=== PATIENT | female | born 1980 | race Caucasian/White ===

== ENCOUNTER 2022-03-09 08:42 | Outpatient (CLI) | payer OTHER, SELFPAY ==
--- NOTE | 2022-03-09 08:45 | CRLHL7_ITS ---
For Patients: As a result of the Century Cures Act, medical imaging exams and procedure reports are released immediately into your electronic medical record. You may view this report before your referring provider. If you have questions, please contact your health care provider. BILATERAL SCREENING MAMMOGRAM WITH COMPUTER-AIDED DETECTION AND TOMOSYNTHESIS TECHNIQUE: CC and MLO views were obtained. These mammographic images have been obtained using full-field digital technique. These mammographic images were interpreted with the benefit of computer-aided detection. Breast Tomosynthesis was used in this interpretation. COMPARISON FILM: 08/18/20. FINDINGS: The breasts are heterogeneously dense, which may obscure small masses IMPRESSION: There is no radiographic evidence for malignancy. ASSESSMENT: BI-RADS Category 2: Benign RECOMMENDATION: Routine screening mammogram in 1 year. A lay language report of this examination will be provided to the patient. Yuni Monroe M.D. Diagnostic/Breast Radiologist [email or web address] NALLELY/Dictated by: Yuni Monroe MD @ 03/09/2022 9:48:00 AM (Electronically Signed)
== END 2022-03-09 08:43 | disposition home or self-care (01) ==
LOC: MAMMO 08:43
PROVIDERS: PCP Family Medicine; Visit Provider Family Medicine
DX: Z12.31 Encounter for screening mammogram for malignant neoplasm of breast (principal); R92.2 Inconclusive mammogram
CPT/HCPCS: 77063; 77067

== ENCOUNTER 2023-04-05 11:52 | Outpatient (CLI) | payer OTHER, SELFPAY ==
--- NOTE | 2023-04-05 12:00 | MR_ITS ---
[facility] [address] [facility] [address] Phone:?[phone] Fax:?[phone] Referring Physician Information: Funmi Patel D.O. [address] [facility] [address] Phone:?[phone] Fax:?[phone] Patient:ManSissy Faust D.O.B:?1980 Sex:?Female Phone:?[phone] [facility] MRN:?[id number] Exam Date:?04/05/2023 EXAM: MRI of the RIGHT HIP, without contrast CLINICAL: Female, 42 years old, with lower back and right hip pain.. INDICATION: Evaluate for hip derangement etiology. PRIOR SURGERY: History of prior surgery including labral repair and ALIREZA hip orthodoxy surgery. PLAIN FILMS: None available. COMPARISONS: No prior MRIs available. MRI of the lumbar spine was also performed and reported separately on today's date. TECHNICAL: Using a 1.5T MR scanner: 3.0 mm?coronals: PD, T2 3.0 mm?sagittals: PD, T2 4.0 mm oblique?axials: PD 4.0 mm?axials: PDFS 5.0 mm?coronals: T1, STIR of pelvis including hips SEDATION: None. CONTRAST: None. IMPRESSION: 1. Residua of labral repair/stabilization surgery with moderate to marked attenuation of the anterosuperior labrum although without convincing more well- defined linear tear. 2. Femoral head-neck osteochondroplasty for cam lesion decompression appears adequate without residual femoral cam morphology. 3. Normal volume hip without acetabular retroversion. 4. No right hip chondromalacia/osteoarthritis. 5. No bone stress injuries. 6. No myotendinous abnormalities. FINDINGS: Hip joint: Effusion: Physiologic hip effusion. Ganglion/paralabral cyst: None. Articular cartilage: Uniform, without demonstrable full-thickness chondromalacia or premature osteoarthritis. Loose bodies: None. Labrum: Residua of labral repair/stabilization surgery. Moderate to marked attenuation/blunting of the anterosuperior into superior labrum without defined linear recurrent labral tear (oblique axial series 6, images 18-13; sagittal PD series 8, images 25-30; coronal PD series 4, images 18-22). The posterosuperior labrum appears intact. Proximal femur: Residua of broad-based femoral head-neck osteochondroplasty for cam decompression without evidence for residual femoral cam morphology. No femoral occult fracture, bone stress injury, marrow edema or osteonecrosis. Acetabulum: No subchondral cysts, periacetabular ossicles or marrow edema. Version: No convincing acetabular retroversion. Coverage: Right lateral center edge (CE) angle measures normal at approximately 30? (normal 25?-39?), midline coronal series 4, image 16. Ligamentum teres: Intact and unremarkable. Pelvis osseous structures: Sacrum: No stress/insufficiency fractures or marrow edema/pathology. Sacroiliac joints: No demonstrable sacroiliitis. Pubic rami: No stress/insufficiency fractures or marrow edema/pathology. Symphysis pubis: No ongoing osteitis pubis. AIIS: Superoinferior extent: At the level of the acetabular roof. Anterior extent: 13 mm anterior to the anterior mid-acetabular rim. Myotendinous structures: Gluteus abductors: No convincing insertional tendinopathy or tear of gluteus minimus or medius. Adductors: No demonstrable tendinopathy or strain/tear. Rectus abdominis: No demonstrable tear/strain. Pre-pubic aponeurotic complex: Intact, without evidence of common rectus abdominis-adductor longus aponeurosis or pubic plate lesion. Hamstrings: Intact semimembranosus, semitendinosus and biceps femoris tendons, without tendinopathy or tear. Flexors: Intact iliopsoas and rectus femoris, without strain/tear. External rotators: Intact, without demonstrable ischiofemoral impingement. Gluteal aponeurotic fascia and IT band: Unremarkable. Bursae: No demonstrable trochanteric, iliopsoas, or iliopectineal bursitis. Intrapelvic contents: Free fluid: No free fluid seen within the pelvis. Pelvic viscera: No discrete intrapelvic mass is identified. Lymph nodes: No pathologically enlarged lymphadenopathy. Neurovascular structures: No discrete cyst, mass or other compression upon the portions visualized of sciatic or femoral nerves. HMF Electronically signed on 04/06/2023 4:52:00 PM by Juan Luis Castillo M.D.
--- NOTE | 2023-04-05 12:00 | MR_ITS ---
[facility] [address] [facility] [address] Phone:?[phone] Fax:?[phone] Referring Physician Information: Funmi Patel D.O. [address] [facility] [address] Phone:?[phone] Fax:?[phone] Patient:Severiano Govind Jimenes.B:?1980 Sex:?Female Phone:?[phone] [facility] MRN:?[id number] Exam Date:?04/05/2023 EXAM: MRI OF THE LUMBAR SPINE WITHOUT CONTRAST CLINICAL INFORMATION: Right low back pain. TECHNICAL INFORMATION: Sagittal fast spin-echo T2-weighted, T1-weighted, STIR as well as axial fast spin-echo T1 and T2-weighted images of the lumbar spine were obtained on a 1.5 Tiffanie MRI scanner.?SEDATION:?None.?CONTRAST:?None. INTERPRETATION: Comparison MRI lumbar spine examination dated 11/01/2017. Generalized levocurvature with 2 to 3 mm retrolisthesis of L2 on L3 and mildly straightened lumbar lordosis. No acute fracture or spondylolysis, although edematous degenerative endplate changes are demonstrated at L2-3. Conus is normal and terminates at L1. Imaged upper sacrum and paraspinal soft tissue structures are unremarkable. Disc desiccation and annular bulging are demonstrated at L4-5 and L2-3 with isolated annular bulging at L3-4. Disc space narrowing is severe at L4-5 and mild at L2-3. L5-S1: Normal posterior disc margins and mild left facet arthrosis. Patent foramina. L4-5: Unchanged left laminotomy and 2 to 3 mm left posterolateral disc protrusion without central stenosis or traversing neural compression. Mild bilateral facet hypertrophy with mild to moderate bilateral chronic foraminal narrowing. L3-4: Unchanged annular bulging with mild left subarticular recess narrowing, but no traversing neural compression or central stenosis. Mild right facet arthrosis and left facet hypertrophy with chronic, mild bilateral foraminal narrowing. L2-3: Unchanged left posterolateral annular fissure with unchanged annular bulging more prominent in this distribution and resultant mild left subarticular recess narrowing, but no traversing neural compression or central stenosis. Mild left facet hypertrophy with mild bilateral chronic foraminal narrowing. L1-2: Normal posterior disc margins and mild left facet hypertrophy. Patent foramina. T12-L1: Normal posterior disc margins and facets. Patent foramina. T11-12: Normal posterior disc margins and mild right facet hypertrophy. Patent foramina. CONCLUSION: Multilevel degenerative lumbar spondylosis, unchanged left L4-5 laminotomy and the following notable findings: 1. Unchanged, 2 to 3 mm left posterolateral L4-5 disc protrusion without central stenosis or traversing neural compression. 2. No acute fracture or spondylolysis, although edematous degenerative endplate changes are demonstrated at L2-3. 3. Mild left L5-S1 and right L3-4 facet arthrosis. 4. No evidence of arachnoidal adhesive disease. SC Electronically signed on 04/07/2023 2:36:00 PM by Dash Avila M.D.
== END 2023-04-05 11:53 | disposition home or self-care (01) ==
LOC: MRI 11:53
PROVIDERS: PCP Family Medicine; Visit Provider Family Medicine
DX: M54.50 Low back pain, unspecified (principal); M47.896 Other spondylosis, lumbar region; M25.551 Pain in right hip; G89.29 Other chronic pain
CPT/HCPCS: 72148; 73721

== ENCOUNTER 2023-04-10 10:48 | Outpatient (CLI) | payer OTHER, SELFPAY ==
--- NOTE | 2023-04-10 11:00 | CRLHL7_ITS ---
For Patients: As a result of the Century Cures Act, medical imaging exams and procedure reports are released immediately into your electronic medical record. You may view this report before your referring provider. If you have questions, please contact your health care provider. CLINICAL HISTORY: RIGHT PELVIC PAIN TECHNIQUE: 2D feliciano scale ultrasound. In addition color Doppler and spectral Doppler analysis was performed of the pelvis using a transabdominal and transvaginal approach. FINDINGS: The uterus measures 9.2 x 6.0 x 7.5 cm. Midline uterine fibroid in the fundus measuring 2.7 x 2.8 x 3.0 cm. A pedunculated left fundal fibroid is also present measuring 2.2 x 1.8 x 3.6 cm. A left lateral fundal fibroid noted measuring 2.0 x 1.8 x 2.2 cm. The endometrial lining demonstrates post ablation changes measures 8 mm in thickness. The right ovary measures 4.2 x 1.6 x 2.3 cm in size and the left ovary measures 3.5 x 1.7 x 2.0 cm. The ovaries demonstrate normal arterial and venous blood flow on color Doppler and spectral Doppler analysis. There are no suspicious fluid collections within the cul-de-sac. IMPRESSION: Uterine fibroids measuring up to 3.6 cm. Post ablation changes to the endometrium. Normal ovaries. No torsion, adnexal mass or excess pelvic free fluid. Dictated by Garcia Fajardo MD @ 04/11/2023 8:40:01 AM (Electronically Signed)
== END 2023-04-10 10:49 | disposition home or self-care (01) ==
PROVIDERS: PCP Family Medicine; Visit Provider Family Medicine
DX: M25.551 Pain in right hip (principal); D25.9 Leiomyoma of uterus, unspecified; R10.2 Pelvic and perineal pain
CPT/HCPCS: 76830; 76856; 93976

== ENCOUNTER 2023-09-18 13:08 | Outpatient (CLI) | payer OTHER, SELFPAY ==
--- NOTE | 2023-09-18 13:45 | MR_ITS ---
Patient: CHING Knowles RUNNING Facility:?[facility] Patient ID:?[id number] Site Patient ID:?[id number]. Site :?1980 Study:?MRI-Extremity Right KNEE W/O-09/18/2023 2:24:43 PM Ordering Physician:TANIA CONLEY Final Report: CLINICAL INDICATION: Right knee pain. COMPARISON STUDIES: None available at time of interpretation. TECHNICAL: Noncontrast MRI of the right knee. 1.5 rico MRI scanner. Axial, sagittal and coronal T1, PD, PD FS and T2 FS images. FINDINGS: MEDIAL COMPARTMENT: Medial Meniscus: The medial meniscal body is moderately medially extruded. At the body-posterior horn junction of the meniscus, there is vertical meniscal signal abnormality noted on coronal PD image number 22 of series 6 and also apparent on sagittal T2 fat-sat image number 25 series 8. This reflects sequelae of meniscal tearing. Correlation with surgical history as pertains to the meniscus is suggested. Specifically has the patient undergone a primary meniscal repair in that region as single conversion changes can persist following central procedure. In the absence of a primary meniscal repair, the finding would be suspicious for a small area of meniscal tearing. Slightly truncated free edge of the medial aspect of the posterior horn of the meniscus. Articular Cartilage: Marginal osteophyte formation. Moderate to high-grade grade medial compartment cartilage wear with areas of grade 2 and 3 chondromalacia present. LATERAL COMPARTMENT: Lateral Meniscus: Intact. Articular Cartilage: Maintained. PATELLOFEMORAL COMPARTMENT: Articular Cartilage: Subchondral bone marrow edema involving the patellar apex indicates up to grade 4 chondromalacia. Trochlear articular cartilage is maintained. LIGAMENTS: Anterior Cruciate Ligament: ACL reconstruction. Appropriate tunnel position. Intact graft fibers. No cyclops lesion. Posterior Cruciate Ligament: Intact. MEDIAL COLLATERAL LIGAMENT AND POSTEROMEDIAL CORNER COMPLEX: Medial Collateral Ligament: Intact. Medial Head of the Gastrocnemius and Semimembranosus Tendons: Normal. LATERAL COLLATERAL LIGAMENT COMPLEX AND POSTEROLATERAL CORNER COMPLEX: Fibular Collateral Ligament: Normal. Distal Biceps Femoris Tendon Complex: Normal. Iliotibial Band: Normal. Popliteus Tendon: Normal. Posterolateral Corner Capsule: Normal. EXTENSOR MECHANISM: Distal Quadriceps Tendon: Normal. Patellar Tendon: Normal. Medial Patellar Retinaculum and Medial Patellofemoral Ligament: Normal. Lateral Patellar Retinaculum: Normal. Normal patellar alignment. No patella parveen. Normal trochlear depth. Normal lateral trochlear inclination. JOINT SPACE AND CAPSULE: Small joint effusion with mild synovitis. BONES AND SOFT TISSUES: No acute fracture or avascular necrosis.Small popliteal cyst. Small amount of fluid within the semimembranosus/MCL bursa compatible with bursitis. IMPRESSION: 1. Intact ACL graft. Appropriate tunnel position. No cyclops lesion. 2. Medial compartment and patellar chondromalacia. Mild osteophyte formation. 3. Sequelae of prior tearing of the posterior horn-body junction and posterior horn of the medial meniscus. Small focus of vertical meniscal signal abnormality involving the posterior horn-body junction of the meniscus suggestive of vertical tear. Correlation with surgical history as pertains to the meniscus is suggested (i.e. Has there been a primary meniscal repair at that position as signal abnormality can persist status post such a procedure) 4. Small joint effusion with mild synovitis. 5. Small popliteal cyst with adjacent semimembranosus/MCL bursitis. Dictated by Luis Jin MD @ 09/19/2023 9:20:26 AM Signed by:?Luis Jin MD @09/19/2023 9:20:26 AM (Electronic Signature)
== END 2023-09-18 13:09 | disposition home or self-care (01) ==
LOC: MRI 13:09
PROVIDERS: PCP Family Medicine; Visit Provider Physician Assistant
DX: M25.561 Pain in right knee (principal); M22.41 Chondromalacia patellae, right knee; S83.241A Other tear of medial meniscus, current injury, right knee, initial encounter; M25.461 Effusion, right knee; M71.21 Synovial cyst of popliteal space [Baker], right knee; M70.51 Other bursitis of knee, right knee
CPT/HCPCS: 73721

== ENCOUNTER 2023-10-02 10:54 | Outpatient (CLI) | payer OTHER, SELFPAY ==
--- NOTE | 2023-10-02 11:15 | FL_ITS ---
Patient: CHING Knowles RUNNING Facility:?[facility] Patient ID:?[id number] Site Patient ID:?[id number]. Site :?1980 Study:?XRay-Hip Right Injection under fluoro DrJohn to JOSEFINA-10/02/2023 12:12:51 PM Ordering Physician:?TANIA FERGUSON Final Report: Indication: Right hip pain. Comparison: None. Procedure : Informed consent was obtained. The site was marked. Time-out was performed. The skin of the right hip was cleansed with ChloraPrep. A sterile drape was placed. 8 cc of 1 percent lidocaine was administered for superficial anesthesia. Subsequently a 22 gauge spinal needle was introduced into the right hip joint under intermittent fluoroscopic guidance. Injection of 2 cc nonionic Omnipaque 240 contrast confirmed intra-articular location. Subsequently 7 cc 1 percent lidocaine and 2 cc 40 milligram per cc Depo-Medrol injected. The needle was removed and hemostasis achieved with direct pressure. A dressing was placed. The patient tolerated the procedure well without immediate complication. Total fluoroscopy time 27 seconds. Impression: Successful fluoroscopically guided right hip injection. Dictated by Garcia Fajardo MD @ 10/02/2023 12:43:49 PM Signed by:?Garcia Fajardo MD @10/02/2023 12:43:49 PM (Electronic Signature)
== END 2023-10-02 10:55 | disposition home or self-care (01) ==
LOC: RAD 10:55
PROVIDERS: PCP Family Medicine; Visit Provider Physician Assistant
DX: M25.551 Pain in right hip (principal)
CPT/HCPCS: 20610; 77002; J1010; Q9966

== ENCOUNTER 2023-11-12 13:32 | Outpatient (CLI) | payer OTHER, SELFPAY ==
--- NOTE | 2023-11-12 13:40 | CRLHL7_ITS ---
For Patients: As a result of the Cures Act, medical imaging exams and procedure reports are released immediately into your electronic medical record. You may view this report before your referring provider. If you have questions, please contact your health care provider. BILATERAL SCREENING MAMMOGRAM WITH COMPUTER-AIDED DETECTION AND TOMOSYNTHESIS TECHNIQUE: CC and MLO views were obtained. These mammographic images have been obtained using full-field digital technique. These mammographic images were interpreted with the benefit of computer-aided detection. Breast Tomosynthesis was used in this interpretation. COMPARISON FILM: 03/09/22, 08/23/20, 08/18/20. FINDINGS: The breasts are heterogeneously dense, which may obscure small masses IMPRESSION: There is no radiographic evidence for malignancy. ASSESSMENT: BI-RADS Category 2: Benign RECOMMENDATION: Routine screening mammogram in 1 year. A lay language report of this examination will be provided to the patient. ELÍAS BRIGGS M.D. Diagnostic/Nuclear Medicine Radiologist [email or web address] ALIYAH:laura Transcribed: 2:18 p.mScottie sanchez/Dictated by: Elías Briggs MD @ 11/14/2023 8:55:00 AM (Electronically Signed)
== END 2023-11-12 13:33 | disposition home or self-care (01) ==
LOC: MAMMO 13:32
PROVIDERS: PCP Family Medicine; Visit Provider Family Medicine
DX: Z12.31 Encounter for screening mammogram for malignant neoplasm of breast (principal); R92.2 Inconclusive mammogram
CPT/HCPCS: 77063; 77067

== ENCOUNTER 2024-04-02 10:08 | Outpatient (REF) | payer OTHER, SELFPAY ==
[2024-04-02 10:45] LABS: Cholesterol* 235 mg/dL (90-199)
[2024-04-02 10:46] LABS: Glucose* 105 mg/dL (60-115); HDL Cholesterol* 45 mg/dL (>=50); LDL Cholesterol Calculated 132 mg/dL (<100); Triglycerides* 289 mg/dL (40-149)
== END 2024-04-02 10:09 | disposition home or self-care (01) ==
LOC: NPINS 10:08
PROVIDERS: PCP Family Medicine; Visit Provider Family Medicine
DX: Z13.1 Encounter for screening for diabetes mellitus (principal); Z13.6 Encounter for screening for cardiovascular disorders
CPT/HCPCS: 80061; 82947

== ENCOUNTER 2024-05-18 16:15 | Outpatient (RCR) | payer OTHER, SELFPAY | END 2024-09-15 23:59 | disposition home or self-care (01) | PROVIDERS: PCP Family Medicine; Visit Provider Family Medicine | DX: M25.572 Pain in left ankle and joints of left foot (principal); G89.29 Other chronic pain; Z51.89 Encounter for other specified aftercare | CPT/HCPCS: 97110; 97161 ==

== ENCOUNTER 2024-12-02 13:04 | Outpatient (CLI) | payer OTHER, SELFPAY ==
--- NOTE | 2024-12-02 13:20 | CRLHL7_ITS ---
For Patients: As a result of the Century Cures Act, medical imaging exams and procedure reports are released immediately into your electronic medical record. You may view this report before your referring provider. If you have questions, please contact your health care provider. BILATERAL DIGITAL SCREENING MAMMOGRAM WITH COMPUTER-AIDED DETECTION AND TOMOSYNTHESIS CLINICAL HISTORY: : Routine screening exam. COMPARISON: 11/02/2023, 03/09/2022, 08/23/2020 TECHNIQUE: Digital mammogram in CC and MLO projections including computer-aided detection (CAD). Tomosynthesis was used in this interpretation. BREAST COMPOSITION: The breasts are heterogeneously dense, which may obscure small masses. FINDINGS: RIGHT Breast: No suspicious findings LEFT Breast: Focal asymmetric density upper outer quadrant 7 cm from the nipple. IMPRESSION: LEFT breast asymmetry/mass. RECOMMENDATIONS: Additional mammographic views of the LEFT breast including 3D spot-compression CC/MLO. LEFT breast ultrasound may also be required. The [facility] will contact the patient. A lay language report of this examination will be provided to the patient. BI-RADS Category 0: Incomplete: Need Additional Imaging Evaluation Dictated by Garcia Fajardo MD @ 12/03/2024 9:01:44 AM Dictated by: Garcia Fajardo MD @ 12/03/2024 09:01:49 (Electronically Signed)
== END 2024-12-02 13:05 | disposition home or self-care (01) ==
LOC: MAMMO 13:04
PROVIDERS: PCP Family Medicine; Visit Provider Family Medicine
DX: Z12.31 Encounter for screening mammogram for malignant neoplasm of breast (principal); N63.20 Unspecified lump in the left breast, unspecified quadrant; R92.333 Mammographic heterogeneous density, bilateral breasts
CPT/HCPCS: 77063; 77067

== ENCOUNTER 2024-12-16 08:29 | Outpatient (CLI) | payer OTHER, SELFPAY ==
--- NOTE | 2024-12-16 08:45 | CRLHL7_ITS ---
For Patients: As a result of the Cures Act, medical imaging exams and procedure reports are released immediately into your electronic medical record. You may view this report before your referring provider. If you have questions, please contact your health care provider. DIGITAL DIAGNOSTIC LEFT MAMMOGRAM USING TOMOSYNTHESIS LEFT BREAST ULTRASOUND CLINICAL HISTORY: LEFT breast mass/asymmetry. COMPARISON: 12/02/2024, 11/12/2023, 03/09/2022. TECHNIQUE: Digital LEFT mammogram in two projections. Tomosynthesis was used in this interpretation. Real-time ultrasound imaging of LEFT breast with imaging documentation. BREAST COMPOSITION: There are scattered areas of fibroglandular density. FINDINGS: 3D spot compression CC/MLO LEFT breast mammogram images submitted. Decreased conspicuity of previously noted asymmetric density. No architectural distortion or suspicious calcifications. Targeted LEFT breast ultrasound performed at 1 o`clock 7 cm from the nipple. In this location, there is a simple circumscribed anechoic cyst which measures 7 x 3 x 4 millimeters. No internal vascularity. No distal acoustic shadowing. IMPRESSION: Benign cyst LEFT breast 1 o`clock 7 cm from the nipple measuring 7 x 3.4 millimeters. No suspicious findings. No evidence of malignancy. RECOMMENDATIONS: Routine screening mammography. A lay language report of this examination will be provided to the patient. BI-RADS Category 2: Benign Dictated by Garcia Fajardo MD @ 12/16/2024 10:46:20 AM jj/Dictated by: Garcia Fajardo MD @ 12/16/2024 10:46:00 AM (Electronically Signed)
--- NOTE | 2024-12-16 09:15 | CRLHL7_ITS ---
For Patients: As a result of the Cures Act, medical imaging exams and procedure reports are released immediately into your electronic medical record. You may view this report before your referring provider. If you have questions, please contact your health care provider. SEE DIGITAL DIAGNOSTIC LEFT MAMMOGRAM PERFORMED SAME DAY CRL:laura sanchez/Dictated by: Garcia Fajardo MD @ 12/16/2024 10:46:00 AM (Electronically Signed)
== END 2024-12-16 08:30 | disposition home or self-care (01) ==
LOC: MAMMO 08:30
PROVIDERS: PCP Family Medicine; Visit Provider Family Medicine
DX: N63.20 Unspecified lump in the left breast, unspecified quadrant (principal); N60.02 Solitary cyst of left breast
CPT/HCPCS: 76642; 77065; G0279